=== PATIENT | male | born 1960 | race Caucasian/White ===

== ENCOUNTER 2018-01-11 00:15 | Emergency (ER) | payer OTHER ==
[2018-01-11] MEDS: Nitroglycerin 0.4 MG Tab.SL SL ONE (00:16)
[2018-01-11 00:54] LABS: CHLORIDE,CL 105 mEq/L (98-106); SODIUM,NA 142 mEq/L (136-145)
--- NOTE | 2018-01-11 01:28 | EDM.PDOC ---
ED HPI GENERAL MEDICAL PROBLEM - General Chief Complaint: Chest Pain Stated Complaint: CHEST PAIN Time Seen by Provider: 01/11/18 00:40 Source of Information: Reports: Patient - History of Present Illness INITIAL COMMENTS - FREE TEXT/NARRATIVE: Pt presents per self with anterior chest heaviness and aching with pain into back between his shoulder blades since 2329 this evening He states that the pain woke him up from a sleep and that he did not have the pain prior to going to bed. He states that if he laid on his left side it did make the pain more uncomfortable than if he laid on the right. Does feel short of breathe with it but does not feel nauseated, or diaphoretic. Denies any heartburn, or diarrhea. Did do some shoveling last evening but he states that it wasn't a lot. Of note is that the snow is very wet and heavy and he is not use to much physical labor. He denies any previous heart issues, does have hypertension that he states has been controlled. Denies any increase in discomfort if he moves his upper extremities. He does feel more SOB and discomfort anteriorly when he takes a deep breathe. No edema. Onset Date: 01/10/18 Onset Time: 23:30 Duration: Heavy Location: Reports: Chest, Back Quality: Reports: Pressure Worsens with: Denies: Movement Associated Symptoms: Reports: Chest Pain, Shortness of Breath. Denies: Cough, Fever/Chills, Nausea/Vomiting Treatments [employer]: Reports: Aspirin Back Pain Score (Numeric/FACES): 4 - Related Data Allergies Allergy/AdvReac Type Severity Reaction Status Date / Time No Known Allergies Allergy Verified 01/11/18 00:25 Home Meds: Home Meds Aspirin 162 mg PO DAILY 01/11/18 [History] Hydrochlorothiazide/Losartan [Hyzaar 50-12.5 MG] 1 tab PO DAILY 01/11/18 [ History] Multivitamin [Multivitamins] 1 cap PO DAILY 01/11/18 [History] Omeprazole Magnesium [Prilosec Otc] 20 mg PO DAILY 01/11/18 [History] guaiFENesin [Mucinex] 1 tab PO BID 01/11/18 [History] Past Medical History Cardiovascular History: Reports: Hypertension - Past Surgical History HEENT Surgical History: Reports: Other (See Below) Other HEENT Surgeries/Procedures: THROAT SURGERY GI Surgical History: Reports: Appendectomy, Hernia, Abdominal Musculoskeletal Surgical History: Reports: Shoulder Surgery Social & Family History - Tobacco Use Smoking Status *Q: Never Smoker - Caffeine Use Caffeine Use: Reports: Coffee ED ROS GENERAL - Review of Systems Review Of Systems: See Below Constitutional: Denies: Fever, Chills, Weakness, Diaphoresis HEENT: Reports: No Symptoms Respiratory: Reports: Shortness of Breath. Denies: Wheezing, Cough Cardiovascular: Reports: Chest Pain (see HPI) GI/Abdominal: Reports: Other (no heartburn). Denies: Abdominal Pain, Constipation, Diarrhea, Nausea : Reports: No Symptoms Musculoskeletal: Reports: Back Pain (between shoulder blades.) Skin: Reports: No Symptoms Neurological: Reports: No Symptoms ED EXAM, GENERAL - Physical Exam Exam: See Below Exam Limited By: No Limitations General Appearance: Alert, WD/WN, Mild Distress Ears: Normal External Exam, Normal Canal, Normal TMs Nose: Normal Inspection Throat/Mouth: Normal Inspection, Normal Oropharynx, Normal Voice, No Airway Compromise Head: Atraumatic, Normocephalic Neck: Normal Inspection, Supple, Non-Tender, Full Range of Motion Respiratory/Chest: No Respiratory Distress, Lungs Clear, Normal Breath Sounds, Chest Non-Tender Cardiovascular: Regular Rate, Rhythm, No Edema, No Murmur GI/Abdominal: Normal Bowel Sounds, Soft, Non-Tender Extremities: Normal Inspection, Normal Range of Motion, Non-Tender, No Pedal Edema, Normal Capillary Refill Neurological: Alert, Oriented Skin Exam: Warm, Dry Course - Vital Signs Last Recorded V/S: Last Vital Signs Temp 99.6 F 01/11/18 00:22 Pulse 80 01/11/18 03:03 Resp 20 01/11/18 01:08 BP 114/66 01/11/18 03:03 Pulse Ox 94 L 01/11/18 01:08 - Orders/Labs/Meds Orders: Active Orders 24 hr Category Date Time Status EKG Documentation Completion [RC] STAT Care 01/11/18 00:15 Active Telemetry Monitoring [Cardiac Monitoring] [RC] . Care 01/11/18 00:20 Active DIRECTED Ang Chest [CT] Stat Exams 01/11/18 02:53 Ordered Chest 2V [CR] Stat Exams 01/11/18 00:27 Taken Sodium Chloride 0.9% [Normal Saline] 1,000 ml Med 01/11/18 04:30 Active IV ASDIRECTED Medication Orders Sodium Chloride (Normal Saline) 1,000 mls @ 250 mls/hr IV ASDIRECTED LUPILLO Last Admin: 01/11/18 04:51 Dose: 250 mls/hr Labs: Laboratory Tests 01/11/18 01/11/18 01/11/18 Range/Units 00:30 00:30 00:30 WBC 12.0 H (5.0-10.0) 10^3/uL RBC 4.64 (4.50-6.00) 10^6/uL Hgb 14.7 (14.0-18.0) g/dL Hct 41.9 (40.0-54.0) % MCV 90.3 (82.0-94.0) fL MCH 31.7 (27.0-32.0) pg MCHC 35.1 (33.0-38.0) g/dL RDW Coeff of [place] 14.1 (11.0-15.0) % Plt Count 256 (150-400) 10^3/uL Neut % (Auto) 64.8 (35-85) % Lymph % (Auto) 24.8 (10-55) % Terry % (Auto) 7.4 (0-16) % Eos % (Auto) 2.8 (0-5) % Baso % (Auto) 0.2 (0-3) % Neut # (Auto) 7.77 H (1.80-7.00) 10^3/uL Lymph # (Auto) 2.97 (1.00-4.80) 10^3/uL Terry # (Auto) 0.89 H (0.00-0.80) 10^3/uL Eos # (Auto) 0.33 (0.00-0.45) 10^3/uL Baso # (Auto) 0.02 10^3/uL PT 10.6 (9.7-12.3) SEC INR 0.98 (0.92-1.18) APTT 25.9 (24.5-30.9) SEC D-Dimer, Quantitative (0.00-0.50) Sodium 142 (136-145) mEq/L Potassium 3.3 L (3.5-5.0) mEq/L Chloride 105 (98-106) mEq/L Carbon Dioxide 30 (21-32) mmol/L BUN 16 (7-18) mg/dL Creatinine 1.1 (0.7-1.3) mg/dL Est Cr Clr Drug Dosing 85.11 mL/min Estimated GFR (MDRD) > 60 (>=60) mL/min Glucose 125 H D (75-99) mg/dL Calcium 8.2 L (8.4-10.1) mg/dL Total Bilirubin 0.5 (0.0-1.0) mg/dL AST 14 L (15-37) U/L ALT 20 (12-78) U/L Alkaline Phosphatase 65 (46-116) U/L Lactate Dehydrogenase 118 (100-190) U/L Creatine Kinase 60 (35-232) U/L Troponin I < 0.017 (0.00-0.06) ng/mL Total Protein 6.3 L (6.4-8.2) g/dL Albumin 3.2 L (3.4-5.0) g/dL Urine Color (YELLOW) Urine Appearance (CLEAR) Urine pH (4.5-8.0) Ur Specific [place] (1.003-1.020) Urine Protein (NEGATIVE) mg/dL Urine Glucose (UA) (NEGATIVE) mg/dL Urine Ketones (NEGATIVE) mg/dL Urine Occult Blood (NEGATIVE) Urine Nitrite (NEGATIVE) Urine Bilirubin (NEGATIVE) Urine Urobilinogen (0.2-1.0) EU/dL Ur Leukocyte Esterase (NEGATIVE) Urine RBC (0-5) /HPF Urine WBC (0-5) /HPF Ur Epithelial Cells (NOT SEEN) /HPF Urine Mucus (NOT SEEN) /HPF 01/11/18 01/11/18 01/11/18 Range/Units 00:30 00:30 06:12 WBC (5.0-10.0) 10^3/uL RBC (4.50-6.00) 10^6/uL Hgb (14.0-18.0) g/dL Hct (40.0-54.0) % MCV (82.0-94.0) fL MCH (27.0-32.0) pg MCHC (33.0-38.0) g/dL RDW Coeff of [place] (11.0-15.0) % Plt Count (150-400) 10^3/uL Neut % (Auto) (35-85) % Lymph % (Auto) (10-55) % Terry % (Auto) (0-16) % Eos % (Auto) (0-5) % Baso % (Auto) (0-3) % Neut # (Auto) (1.80-7.00) 10^3/uL Lymph # (Auto) (1.00-4.80) 10^3/uL Terry # (Auto) (0.00-0.80) 10^3/uL Eos # (Auto) (0.00-0.45) 10^3/uL Baso # (Auto) 10^3/uL PT (9.7-12.3) SEC INR (0.92-1.18) APTT (24.5-30.9) SEC D-Dimer, Quantitative 0.47 (0.00-0.50) Sodium (136-145) mEq/L Potassium (3.5-5.0) mEq/L Chloride (98-106) mEq/L Carbon Dioxide (21-32) mmol/L BUN (7-18) mg/dL Creatinine (0.7-1.3) mg/dL Est Cr Clr Drug Dosing mL/min Estimated GFR (MDRD) (>=60) mL/min Glucose (75-99) mg/dL Calcium (8.4-10.1) mg/dL Total Bilirubin (0.0-1.0) mg/dL AST (15-37) U/L ALT (12-78) U/L Alkaline Phosphatase (46-116) U/L Lactate Dehydrogenase 117 (100-190) U/L Creatine Kinase 57 (35-232) U/L Troponin I < 0.017 (0.00-0.06) ng/mL Total Protein (6.4-8.2) g/dL Albumin (3.4-5.0) g/dL Urine Color Angelina (YELLOW) Urine Appearance Clear (CLEAR) Urine pH 5.0 (4.5-8.0) Ur Specific [place] 1.025 H (1.003-1.020) Urine Protein Negative (NEGATIVE) mg/dL Urine Glucose (UA) Negative (NEGATIVE) mg/dL Urine Ketones Trace H (NEGATIVE) mg/dL Urine Occult Blood Negative (NEGATIVE) Urine Nitrite Negative (NEGATIVE) Urine Bilirubin Negative (NEGATIVE) Urine Urobilinogen 0.2 (0.2-1.0) EU/dL Ur Leukocyte Esterase Negative (NEGATIVE) Urine RBC 0-5 (0-5) /HPF Urine WBC 0-5 (0-5) /HPF Ur Epithelial Cells Few H (NOT SEEN) /HPF Urine Mucus Few H (NOT SEEN) /HPF Meds: Medications Generic Name Dose Route Start Last Admin Trade Name Freq PRN Reason Stop Dose Admin Sodium Chloride 1,000 mls @ 250 mls/hr 01/11/18 04:30 01/11/18 04:51 Normal Saline IV 250 mls/hr ASDIRECTED LUPILLO Administration Discontinued Medications Generic Name Dose Route Start Last Admin Trade Name Freq PRN Reason Stop Dose Admin Iopamidol 100 ml 01/11/18 03:23 01/11/18 03:43 Isovue-370 (76%) IVPUSH 01/11/18 03:24 100 ml ONETIME ONE Administration Metoprolol Tartrate 5 mg 01/11/18 01:53 01/11/18 02:05 Lopressor IVPUSH 01/11/18 01:54 5 mg ONETIME ONE Administration Metoprolol Tartrate 5 mg 01/11/18 02:11 01/11/18 02:13 Lopressor IVPUSH 01/11/18 02:12 5 mg ONETIME ONE Administration Metoprolol Tartrate 5 mg 01/11/18 02:18 01/11/18 02:23 Lopressor IVPUSH 01/11/18 02:19 5 mg ONETIME ONE Administration Nitroglycerin 0.4 mg 01/11/18 00:20 01/11/18 00:16 Nitrostat SL 01/11/18 00:21 0.4 mg ONETIME ONE Administration - Re-Assessments/Exams Free Text/Narrative Re-Assessment/Exam: 01/11/18 01:[address] Hart via [facility] pts EKG. He does recommend that we give lopressor 5 mg IV and repeat up to 3 times q5 minutes to bring his heart rate down to 65-70 and then repeat EKG and have him evaluate again. 01/11/[address] Hart and review the second EKG with him after the 3rd dose of lopressor was given. Lowest heart rate noted was 75 bpm. pt states that he feels more short of breathe with deep inspiration and O2 sats remain at 97% on room air. Dr. Hart did recommend at CT chest to rule out PE or other abnormality in lungs. orders given. Pt states that he feels better. 01/11/18 07:[address] Greco. Will start Toprol XL 50 mg and schedule for gnozi scan with Dr. Greco 01/11/18 07:46 Departure - Departure Time of Disposition: 07:41 Disposition: Home, Self-Care 01 Condition: Good Clinical Impression: Atypical chest pain Referrals: Daniel Greco MD [Primary Care Provider] - Forms: ED Department Discharge Additional Instructions: Start Toprol XL 50 mg daily. Start tomorrow Ngozi scan with Dr. Greco. xray will call you with a time later today. If pain reoccurs, changes, or gets worse return to the ER or appt with Dr. Greco - Problem List & Annotations (1) Atypical chest pain SNOMED Code(s): 080080236 Code(s): R07.89 - OTHER CHEST PAIN Status: Acute Priority: High Current Visit: Yes - Problem List Review Problem List Initiated/Reviewed/Updated: Yes - My Orders Last 24 Hours: My Active Orders 01/11/18 00:15 EKG Documentation Completion [RC] STAT 01/11/18 00:20 Telemetry Monitoring [Cardiac Monitoring] [RC] . DIRECTED 01/11/18 00:27 Chest 2V [CR] Stat 01/11/18 02:53 Ang Chest [CT] Stat 01/11/18 04:30 Sodium Chloride 0.9% [Normal Saline] 1,000 ml IV ASDIRECTED - Assessment/Plan Last 24 Hours: My Active Orders 01/11/18 00:15 EKG Documentation Completion [RC] STAT 01/11/18 00:20 Telemetry Monitoring [Cardiac Monitoring] [RC] . DIRECTED 01/11/18 00:27 Chest 2V [CR] Stat 01/11/18 02:53 Ang Chest [CT] Stat 01/11/18 04:30 Sodium Chloride 0.9% [Normal Saline] 1,000 ml IV ASDIRECTED
[2018-01-11] MEDS: Metoprolol Tartrate 5 MG/5 ML SDV IVPUSH ONE ×3 (02:05→02:23)
[2018-01-11] MEDS: Iopamidol 755 Mg/ML 100 ML Bottle IVPUSH ONE (03:43)
[2018-01-11] MEDS: Sodium Chloride 0.9% 1,000 ML IV SCH (04:51)
== END 2018-01-11 08:13 | disposition home or self-care (01) ==
LOC: CC.ED 00:15
DX: R07.89 Other chest pain (principal); I10 Essential (primary) hypertension; Z79.82 Long term (current) use of aspirin; Z79.899 Other long term (current) drug therapy
CPT/HCPCS: 36415; 71046; 80053; 81001; 82550; 83615; 84484; 85025; 85379; 85610; 85730; 93005; 96361; 96374; 99285; A9270-GY; J3490; J7030; Q9967

== ENCOUNTER → 2021-05-09 | Day surgery (SDC) | payer OTHER ==
[~2021-05-09] MED LIST: Flumazenil 0.1 MG/ML 5 ML MDV ONE; Ketamine 200 MG/20 ML MDV ONE; Midazolam 1 MG/ML 2 ML SDV ONE; Propofol 200 MG/20 ML SDV ONE; fentaNYL 100 MCG/2 ML SDV ONE
[2021-05-09] MEDS: Lactated Ringers 1,000 ML IV SCH (10:29)
--- NOTE | 2021-05-09 13:11 | OR ---
DATE OF OPERATION: 05/09/2021 PREOPERATIVE DIAGNOSIS: SCREENING COLONOSCOPY. POSTOPERATIVE DIAGNOSIS: SCREENING COLONOSCOPY. SURGEON: Marcos Kruger MD PROCEDURE: TOTAL COLONOSCOPY. ANESTHESIA: MAC. SPECIMEN: None. FINDINGS: Moderate left-sided sigmoid diverticulosis. No polyps, masses, or bleeding sites. RECOMMENDATIONS: Followup screening colonoscopy in 10 years. INDICATIONS: This 61-year-old male is here for screening colonoscopy. He says he thinks he has had a polyp removed on a prior colonoscopy, but cannot remember exactly and I do not have a record of it. DESCRIPTION OF PROCEDURE: After adequate preparation, a colonoscope was inserted into the rectum. This was passed all the way to the cecum. Confirmation of the cecum was made by visualization of the ileocecal valve and palpation in the right lower quadrant. A photograph of the ileocecal valve was taken. The bowel prep was very good. On withdrawal of the scope, the only abnormality was a moderate sigmoid diverticulosis, mostly confined to the left side of the colon. Anal and rectal examination were normal. He has no hemorrhoids. Air was suctioned from the colon and the scope removed. WYATT/FABIO /[id number]
== END ==
LOC: CC.SDS 10:09
PROVIDERS: ATTEND Surgery
DX: Z12.11 Encounter for screening for malignant neoplasm of colon (principal); K57.30 Diverticulosis of large intestine without perforation or abscess without bleeding; N40.0 Benign prostatic hyperplasia without lower urinary tract symptoms; K21.9 Gastro-esophageal reflux disease without esophagitis; I10 Essential (primary) hypertension; G62.9 Polyneuropathy, unspecified; G47.30 Sleep apnea, unspecified; E66.01 Morbid (severe) obesity due to excess calories; Z88.8 Allergy status to other drugs, medicaments and biological substances; Z79.82 Long term (current) use of aspirin; Z79.899 Other long term (current) drug therapy; Z90.49 Acquired absence of other specified parts of digestive tract; Z98.890 Other specified postprocedural states; Z68.41 Body mass index [BMI] 40.0-44.9, adult
CPT/HCPCS: J2250; J2704; J3010; J3490; J7120